=== PATIENT | female | born 1985 | race African-American/Black ===

== ENCOUNTER 2016-09-12 17:57 | Emergency (ER) | payer BC, OTHER ==
[~2016-09-12 17:57] MED LIST: BLOOD GLUCOSE M1 KIT; BLOOD GLUCOSE T1 TES; ERGO1CAP10 PO; GLIP5TAB8 PO; GLUCKIT15; GLUCTES12; HYDR25TA5 PO; LANCETS1 MI1; LISI-515 PO; METF1000 PO; [UNRECOGNIZED DRUG - OTHER]
[2016-09-12 17:59] VITALS: BP 143/81; PULSE 88; RESP 15; TEMP 98.2; O2SAT 98
[2016-09-12] MEDS ORDERED: IBUP-232 PO (18:49)
[2016-09-12] MEDS ORDERED: NON-500T13 PO (18:49)
[2016-09-12] MEDS ORDERED: CYCL1TAB29 PO (18:49)
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
== END 2016-09-12 19:17 | disposition home or self-care (01) ==
LOC: NEPD 17:57
DX: S46.912A Strain of unspecified muscle, fascia and tendon at shoulder and upper arm level, left arm, initial encounter (principal); F32.9 Major depressive disorder, single episode, unspecified; I10 Essential (primary) hypertension; Z79.899 Other long term (current) drug therapy; V43.52XA Car driver injured in collision with other type car in traffic accident, initial encounter
CPT/HCPCS: 99283

== ENCOUNTER 2016-11-25 12:04 | Emergency (ER) | payer SELFPAY ==
[~2016-11-25] VITALS: Ht 157.5 cm; Wt 110.0 kg
[~2016-11-25 12:04] MED LIST changes: +CYCL1TAB29 PO; +IBUP-232 PO; +NON-500T13 PO
[2016-11-25 12:05] VITALS: BP 225/101; PULSE 71; RESP 16; TEMP 98.3; O2SAT 98
[2016-11-25 12:35] VITALS: BP 166/78; PULSE 87
[2016-11-25 13:28] VITALS: BP 199/101
[2016-11-25] MEDS ORDERED: cloNIDine HCL 0.1 MG TAB PO ONE (13:30)
--- NOTE | 2016-11-25 13:32 | PD ---
HPI Chief Complaint: Hypertension Time Seen by Provider: 12:39 Travel History International Travel<30 days: No Contact w/Intl Traveler<30days: No Traveled to known affect area: No History of Present Illness HPI 31-year-old female with history of hypertension and diabetes here for evaluation of elevated blood pressure. Patient reports yesterday while being seen by her orthopedist for rotator cuff injury/upper back pain she was noted to have elevated blood pressure in the office. Today she felt as if "I was going to pass out" so she checked her blood pressure and noted it to be high she called her PCP and they instructed her to come to the emergency room. Patient currently is asymptomatic. She denies headache, dizziness, visual changes, chest pain, shortness of breath. She reports frequent fluctuations with her blood pressure. She is currently on lisinopril/hydrochlorothiazide. PFSH Past Medical History Depression: Yes Heart Rhythm Problems: Yes (MURMUR) Diabetes: Yes Patient Takes Glucophage: Yes Diminished Hearing: No Hypertension: Yes ?: Not LMP: 11/09/16 : 5 Para: 1 Miscarriage: 2 : 2 Past Surgical History Section: Yes Genitourinary Surgery: Yes () Social History Alcohol Use: No Tobacco Use: No Substance Use: No Allergies-Medications (Allergen,Severity, Reaction): Coded Allergies: amlodipine (Unverified Allergy, Severe, FACIAL SWELLING, DIZZINESS, ) Reported Meds & Prescriptions Reported Meds & Active Scripts Active Glipizide 5 Mg Tab 5 Mg PO DAILY Take 30 minutes before a meal Ibuprofen 600 Mg Tab 600 Mg PO Q6H PRN Flexeril (Cyclobenzaprine HCl) 10 Mg Tab 10 Mg PO TID Non-Aspirin Pain Relief ES (Acetaminophen) 500 Mg Tab 1,000 Mg PO Q6HR PRN Lisinopril 20 Mg Tab 20 Mg PO DAILY Lancets 1 Mis Mis 1 Ea .ROUTE DIRECTED Blood Glucose Test Strips 1 Naz Anz 1 Ea .ROUTE TID Blood Glucose Monitoring W/Device (Device) 1 Kit Kit 1 Kit .ROUTE DIRECTED Metformin (Metformin HCl) 1,000 Mg Tab 1,000 Mg PO DAILY With a meal Reported Glucocom Test Strips (Blood Glucose Test Strips) 1 Naz Naz 1 Ea .ROUTE DIRECTED Glucocom Blood Glucose Mo W/Device (Device) 1 Kit Kit 1 Kit .ROUTE DIRECTED [aristocort cream] Vitamin D (Ergocalciferol) 50,000 Unit Cap 50,000 Units PO Q7D Hydrochlorothiazide 25 Mg Tab 25 Mg PO DAILY Review of Systems Except as stated in HPI: all other systems reviewed are Neg General / Constitutional: No: Fever Eyes: No: Visual changes HENT: No: Headaches Cardiovascular: No: Chest Pain or Discomfort Respiratory: No: Shortness of Breath Gastrointestinal: No: Abdominal Pain Genitourinary: No: Dysuria Physical Exam Narrative GENERAL: Well-appearing female in no acute distress resting comfortably on stretcher SKIN: Focused skin assessment warm/dry. HEAD: Atraumatic. Normocephalic. EYES: Pupils equal and round. No scleral icterus. No injection or drainage. ENT: No nasal bleeding or discharge. Mucous membranes pink and moist. NECK: Trachea midline. No JVD. CARDIOVASCULAR: Regular rate and rhythm. No murmur appreciated. RESPIRATORY: No accessory muscle use. Clear to auscultation. Breath sounds equal bilaterally. GASTROINTESTINAL: Abdomen soft, non-tender, nondistended. Hepatic and splenic margins not palpable. MUSCULOSKELETAL: No obvious deformities. No clubbing. No cyanosis. No edema. NEUROLOGICAL: Awake and alert. No obvious cranial nerve deficits. Motor grossly within normal limits. Normal speech. PSYCHIATRIC: Appropriate mood and affect; insight and judgment normal. Data Data Last Documented VS Vital Signs Date Time Temp Pulse Resp B/P (MAP) Pulse Ox O2 Delivery O2 Flow Rate FiO2 11/25/16 13:28 199/101 (133) 11/25/16 12:35 87 11/25/16 12:05 98.3 16 98 Room Air Orders Orders Clonidine (Catapres) (11/25/16 13:30) Ed Discharge Order (11/25/16 14:13) MDM Medical Decision Making Medical Screen Exam Complete: Yes Emergency Medical Condition: Yes Differential Diagnosis HTN, Narrative Course 31-year-old female here for evaluation of elevated blood pressure readings for the last 2 days. Patient reports earlier today she felt as if she was "pass out "she describes this same feeling previously when her blood pressures have been elevated. She denies ever having a syncopal episode. She currently is asymptomatic. Her blood pressure in triage was noted to be 225/101. Patient will be observed in the emergency department. On reevaluation patient is requesting discharge her blood pressure is 156/87. She remained asymptomatic in the emergency department. Patient has follow-up with her primary this week. Diagnosis Primary Impression: Hypertension Qualified Codes: I10 - Essential (primary) hypertension Referrals: Primary Care Physician Additional Instructions: Follow-up with Dr. Stallings as directed. Return to the emergency department if he developed new or worsening symptoms. Disposition: 01 DISCHARGE HOME Condition: Stable Denisa Vigil Nov 25, 2016 13:32
== END 2016-11-25 15:29 | disposition home or self-care (01) ==
LOC: NEPD 12:04
DX: I10 Essential (primary) hypertension (principal); E11.9 Type 2 diabetes mellitus without complications; M54.6 Pain in thoracic spine
CPT/HCPCS: 99283